=== PATIENT | female | born 1975 | race Caucasian/White ===

== ENCOUNTER 2017-03-14 05:47 | Day surgery (SDC) | payer OTHER ==
[~2017-03-14] VITALS: Ht 169.6 cm; Wt 95.1 kg
[2017-03-14] VITALS (10 sets, daily range): BP systolic 127–146; BP diastolic 78–98; PULSE 67–106; RESP 17–22; O2SAT 89–98
[~2017-03-14 05:47] MED LIST: ESTR2TAB2 PO; LISI1TAB11 PO; Lactated Ringer's 1,000 ML IV ONE
[2017-03-14] MEDS ORDERED: fentaNYL-PF 50 mCg/mL 2 mL Inj ONE (05:48)
[2017-03-14] MEDS ORDERED: HYDROmorphone 1 mg/mL Inj ONE (05:48)
[2017-03-14] MEDS ORDERED: Remifentanil 1 mg/3 mL Inj ONE (05:48)
[2017-03-14] MEDS ORDERED: Ondansetron 2 mg/mL 2 mL Inj ONE (05:48)
[2017-03-14] MEDS ORDERED: Propofol 10,000 mCg/mL 20 mL Inj ONE (05:48)
[2017-03-14] MEDS ORDERED: Neostigmine 1 mg/mL 10 mL Inj ONE (05:48)
[2017-03-14] MEDS ORDERED: EPHEDrine/NS 5 mg/mL 5 mL Syringe ONE (05:48)
[2017-03-14] MEDS ORDERED: Glycopyrrolate 0.2 MG/ML 1mL Inj ONE (05:48)
[2017-03-14] MEDS ORDERED: MetoCLOpramide 5 mg/mL 2 mL Inj ONE (05:48)
[2017-03-14] MEDS ORDERED: Dexamethasone 4 mg/mL Inj ONE (05:48)
[2017-03-14] MEDS ORDERED: Rocuronium 10 mg/mL 5 mL Inj ONE ×2 (05:48)
[2017-03-14] MEDS: Cefotetan 2,000 mg/100 mL D5W IV SCH ×4 (06:00→08:00)
[2017-03-14] MEDS ORDERED: Bupivacaine-MPF 0.5% 30 mL Inj INFILTRATE ONE (07:28)
[2017-03-14] MEDS ORDERED: 0.9% Sodium Chloride 1,000 ML IV ONE (08:00)
[2017-03-14] MEDS ORDERED: Lactated Ringer's 1,000 ML IV SCH (08:59)
[2017-03-14] MEDS ORDERED: Lactated Ringer's 500 ML IV PRN (08:59)
--- NOTE | 2017-03-14 08:59 | PCM.HPANE ---
Patient Data Surgeon Admitting Provider: Attending Provider:Lauren Heredia MD Primary Care Physician:Gabby Hawkins MD Other Provider:Latisha Nelson Anesthesia Reason for Visit Cystic Mass Of Pancreas Ht/WT & BMI Height (Feet): 5 Height (Inches): 6.75 Weight (Kilograms): 94.6 Body Mass Index 32.00 Allergies Coded Allergies: No Known Allergies (Verified Allergy, Unknown, 06/12/15) Past Anesthesia History Anesthesia History: Denies:: Abnormal Airway, Anesthesia Reactions, Difficult Intubation, Fam Anesthesia Reaction, Fam Malignant Hypertherm, Malignant Hyperthermia Diabetes History Hx Diabetes?: No MRSA MRSA: No Medications Hypertension Medication: Yes (treated with lisinopril/HCTZ) Home Meds Incl Beta Reyna: No Reported Medications Estradiol 2 Mg Tablet2 Mg PO DAILY Ref 0 03/10/17 Lisinopril / HCTZ 20-25 mg 1 Each Tablet1 Each PO DAILY Ref 0 03/10/17 Discontinued Reported Medications Lisinopril / HCTZ 20-25 mg 1 Each Tablet1 Each PO DAILY Ref 0 03/09/16 Discontinued Scripts oxyCODONE 5 Mg Tablet5 Mg PO Q4H PRN For Moderate Pain #30 TABLET Prov:Lauren Heredia MD 03/15/16 Polyethylene Glycol 3350 (Miralax)17 Gm Powd.pack17 Gm PO DAILY #30 Prov:Lauren Heredia MD 03/15/16 History History of ENT Problems?: Yes HEENT History: Positive for:: Sinus Problem (only with seasonal allergies) TMJ Denies:: Abnormal Airway Cataracts Difficult Intubation Dysphagia Glaucoma Hearing Problem Denture Type: None Retainer/Coatings Inspector Teeth Condition: Within Normal Limits Other HEENT 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 Hx of Heart Problems?: Yes Cardiovascular History: Positive for:: Hypertension Denies:: AICD Abdominal Aortic Aneurism Atrial Fibrillation Cardiac Surgery Chest Pain Congestive Heart Failure Coronary Artery Disease Edema Heart Murmur Irregular Heartbeat Pacemaker Peripheral Vascular Rheumatic Fever Thrombophlebitis Valvular Heart Disease Hx of Respiratory Problem?: No Respiratory History: Denies:: Asthma COPD Chest Surgery Cough Dyspnea Emphysema Hemoptysis Oxygen Administration Pneumonia Pulmonary Embolism Tuberculosis Use of C-PAP Machine Use of Inhalers / NEBS Hx Neurologic Problems?: No Neurological History: Denies:: Alzheimer's Disease CVA Dementia Dizziness Headaches Multiple Sclerosis Parkinson's Disease Peripheral Neuropathy Seizures TIA Hx of GI Problems?: No Gastrointestinal History: Denies:: Cirrhosis Diverticulitis Gall Bladder Disease Gastroesphageal Reflux Gastrointestinal Bleeding Heartburn Hepatitis Hiatal Hernia Liver Disease Rectal Bleeding Hx of Problems?: No Genitourinary History: Denies:: HX of Hemodialysis Kidney Stones Urinary Tract Infection HX of Peritoneal Dialysis: No Female Hx: Denies:: Currently (HX: HYSTERECTOMY) Endometriosis Pelvic Inflammatory Problems with Breasts? Skin History: Denies:: History Skin Disorders? Pressure Ulcers Hx Musculoskeletal Problems?: No Musculoskeletal History: Denies:: Back Injury Degenerative Joint Fibromyalgia Joint Replacement Musculoskeletal Trauma Myasthenia Gravis Osteoarthritis Rheumatoid Arthritis Systemic Lupus Hx of Psycho/Social Problems?: No Psycho Social History: Denies:: Anxiety Bipolar Disorder Hx Depression Suicide Attempt Hx Surgeries?: Yes (Choli, Hysterectomy, Tubal) Hx Any Other Health Problems?: Yes Other History: Positive for:: Hospitalization (Pancreatitis - Prov. Alberto November 2014) Denies:: Cancer Endocrine Disease Thyroid Disease History Blood Transfusions: Positive for:: Accept Blood Products? Denies:: Blood Transfuse Reaction Blood Transfusions Hx Diabetes: No Hx Alcohol Use: NoHx Substance Use: No Smoking Status: Former Smoker Stop/Bang S-Snoring: Do You Snore Loudly: No T-Tired: feel tired, fatigued: No O-Obsered: Observed not breath: No A- Age over 50: No N- Neck Large Circumference: No G- Gender Male: No Risk Assessment Category Category 1A: Patient has history of documented sleep apnea, and HAS NOT received any narcotic, sedative or anesthesia administration during this stay. Category 1B: Patient has history of documented sleep apnea, and HAS received any narcotic , sedative or anesthesia administration during this stay Category 2: Patient has SUSPECTED Obstructive Sleep Apnea, and HAS received any narcotic , sedative or anesthesia administration during this stay. Category 3: Patient has SUSPECTED Obstructive Sleep Apnea and HAS NOT received narcotic, sedative or anesthesia administration during this stay. Category 4: Outpatient in Procedural Areas with known sleep apnea or who screen positive for High Risk via the STOP/BANG questionnaire. Exam Exam Vital Signs Vital Signs Date Time Temp Pulse Resp B/P Pulse Ox O2 Delivery O2 Flow Rate FiO2 03/14/17 06:04 35.8 67 17 127/88 95 Room Air General Appearance: Alert, Oriented X3, Cooperative, No Acute Distress HEENT/AIRWAY: MP 2, Neck Movement (FROM), Mouth Opening (3 FBMO) Lungs: Clear to Auscultation, Normal Air Movement Heart: Exam Unremarkable, Regular Rate/Rhythm, No Murmurs/Rubs/Gallops Meds/Labs/Diagnostics Admission Meds Current Medications Lactated Ringer's (Lr) 1,000 ml @ 120 mls/hr Q8H20M ONCE IV Last administered on 03/14/17t 05:50; Start 03/14/17 at 05:00; Stop 03/14/17 at 13:19 Plan Impression Patient chart reviewed, patient interviewed and anesthestic plan with risks, benefits, and alternatives discussed, and informed consent obtained. NPO per Anesth. Guidelines: Yes ASA Physical Status: ASA2 Mod Systemic Disease Anesthetic Support Modalities: Arterial Line (anesthetic risks of arterial line including bleeding, infection, nerve damage, sensory loss to hand, loss of blood flow to the hand, air embolism discussed. AQA. Consent signed.) Anesthetic Plan: GA, Epidural (Possible postoperative epidural for pain relief discussed and consent signed.) Bene/Risks/Altern/Consents: Yes HP Complete Prior to Induction: Yes Shukri Lazo MD Mar 14, 2017 07:17
[2017-03-14] MEDS ORDERED: fentaNYL-PF 50 mCg/mL 2 mL Inj IVPUSH PRN (09:00)
[2017-03-14] MEDS ORDERED: MetoCLOpramide 5 mg/mL 2 mL Inj IVPUSH PRN ×2 (09:00→15:35)
[2017-03-14] MEDS ORDERED: Atropine 0.4 mg/mL Inj IVPUSH PRN (09:00)
[2017-03-14] MEDS ORDERED: Phenylephrine 10,000 mCg/mL Inj IVPUSH PRN (09:00)
[2017-03-14] MEDS ORDERED: EPHEDrine Sulfate 50 mg/mL Inj IVPUSH PRN (09:00)
[2017-03-14] MEDS ORDERED: Ondansetron 2 mg/mL 2 mL Inj IVPUSH PRN (09:00)
[2017-03-14] MEDS ORDERED: Labetalol 5 mg/mL 4 mL Inj IV PRN (09:00)
[2017-03-14] MEDS ORDERED: Lactated Ringer's 1,000 ML IV ONE (09:39)
--- NOTE | 2017-03-14 15:34 | PCM.SURGPO ---
Immediate Operative Note Date of Surgery: Mar 14, 2017 Pre Operative Diagnosis Cystic lesion of the pancreas Post Operative Diagnosis Same Procedure Laparoscopic Distal pancreatectomy with splenectomy Surgeon and Pork Cutlet Maker Surgeon: Lauren Heredia MD Assistants: Juan J Serra MD, Nando Napoles PAC Findings Lesion identified with US prior to transection. Frozen section negative Complications There were no periprocedural complications identified. Surgical Specimen Removed: Yes Specimen sent to Pathology: Yes Anesthetic Administered: GA Grafts, Implants: None Output, Estimated Blood Loss: 10 Blood Admin during surgery: No Attending Statement First Assistants listed were medically necessary for the successful completion of the operation Lauren Heredia MD Mar 14, 2017 15:33
[2017-03-14] MEDS ORDERED: Acetaminophen IV 1,000 MG in IV Premix 1 EACH IV PRN (15:40)
[2017-03-14] MEDS ORDERED: Dextrose 10% 250 ML IV PRN (15:45)
--- NOTE | 2017-03-14 15:49 | PCM.ANEP1 ---
Post Anesthesia PACU Phase 1 Assessment Vital Signs Vital Signs Date Time Temp Pulse Resp B/P Pulse Ox O2 Delivery O2 Flow Rate FiO2 03/14/17 15:45 36.7 91 22 127/82 98 Simple Mask 6 Anesthetic Administered: GA Level of Alertness: Awake, talking RIVERA's with Equal Strength: Yes Pain: No Nausea or Vomiting: No CV Function & Hydration Stable: Yes Airway Device: N/A Oxygen Delivery: Simple Mask Lungs: Clear to Auscultation, Normal Air Movement Dermatome Level: Full Sensation PACU Phase 2 Assessment Complications: No Follow up Care: N/A Patient Instructions Provided: N/A Shukri Lazo MD Mar 14, 2017 15:49
[2017-03-14 16:07] LABS: BASOPHILS % (AUTO) 0.1 % (0-3); EOSINOPHILS % (AUTO) 0 % (0-5); MONOCYTES % (AUTO) 5.4 % (4-12); Mean Corpuscular Hemoglobin 29.5 pg (27.0-35.0); Mean Corpuscular Volume 88.1 fL (81-100); Platelet Count 246 bil/L (150-400)
[2017-03-14] MEDS: HYDROmorphone 1 mg/mL Inj IVPUSH PRN ×5 (16:30→23:33)
[2017-03-14] MEDS: Ondansetron 2 mg/mL 2 mL Inj IVPUSH PRN ×3 (17:22→21:05)
--- NOTE | 2017-03-14 17:37 | NUR ---
Admit to floor: Pt arrived to floor at 1700. A/OX3. OOB to BSC, nausea with transfer. 4mg IV Zofran given for nausea. Pt burping, informed to continue as to clear gas accumulation. On NC 3L sats of 95-96%. NM checks normal. Mother, Crystal, in room with pt.
[2017-03-14] MEDS: Insulin Human REGular 300 Unit/3 mL Inj SUBQ SCH (21:07)
--- NOTE | 2017-03-14 23:27 | OP ---
[address] [address] OPERATIVE REPORT PATIENT: ADAMARIS YORK : 1975 MR#: [id number] ADMIT: 03/14/2017 JOB ID: [id number] DATE OF SURGERY: 03/14/2017 PREOPERATIVE DIAGNOSIS(ES): Cystic lesion on the body of the pancreas. POSTOPERATIVE DIAGNOSIS(ES): Cystic lesion on the body of the pancreas. PROCEDURE PERFORMED: 1. Laparoscopic distal pancreatectomy with splenectomy. 2. Intraoperative ultrasound and interpretation. 3. Mobilization of splenic flexure. SURGEON: Lauren Heredia MD. GANG RIPSAW OPERATOR: Juan J Serra MD and Nando Napoles PA-C. ESTIMATED BLOOD LOSS: 10 mL. COMPLICATIONS: None. CONDITION OF THE PATIENT: Stable. INDICATIONS: The patient is a 41-year-old lady who has had known lesion in the tail of the pancreas for the past few years. It was initially noted with an episode of pancreatitis and after that she has been monitored with cross-sectional imaging and endoscopic ultrasound. A cholecystectomy did not improve her symptoms of abdominal pain and she continued to have episodic left upper abdominal and back pain and on repeat imaging a cystic lesion appeared to be getting bigger. After discussing the risks, benefits, and alternatives, and getting evidence for pneumococcus, meningococcus and hemophilus influenza B, she comes here today for a distal pancreatectomy and splenectomy. PROCEDURE IN DETAIL: The patient was placed in supine position, underwent smooth induction of general anesthesia. A Carbajal catheter was placed, an arterial line was placed and the abdomen was prepped and draped in the usual sterile fashion in the lithotomy position. After this, surgical time-out was undertaken using safety checklist, and all were in agreement. I began by entering the abdomen in the supraumbilical location using a combination of open Ming technique and the Optiview trocar. Obtained pneumoperitoneum and then placed an additional three 5 mm ports, one in the epigastrium and two in the left upper quadrant. I began by mobilizing the splenic flexure of the colon, getting between the transverse mesocolon and the Gerota's fascia. After my wide mobilization of the splenic flexure, I got into the lesser sac by dividing the short gastrics along the greater curvature of the stomach. After exposing the anterior surface of the pancreas were taken down. The posterior attachments of the stomach we used laparoscopic intraoperative ultrasound to evaluate the pancreas and found obvious cystic lesion in the body of the pancreas. I then marked the place of transection of the pancreas with cautery and began our dissection at the inferior aspect of the pancreas. We then created a tunnel posterior to the anchored location with a combination of blunt and sharp dissection, lifting the pancreas and the splenic vein. After dissecting the pancreas circumferentially in this location including the width of the gland, I encircled it in a [place] drain. After making sure that we had adequate opening around the pancreas, we divided the pancreas with a 60 mm endo SIRISHA stapler reinforced with SeamGuard using gradually increasing compression to compress the gland adequately. We proceeded to use two loads to complete the division of the gland and the vasculature including the splenic vein and the artery. I then continued to mobilize the pancreas from its retroperitoneal attachments posteriorly with a combination of blunt and sharp dissection. We then joined the dissection lines from the medial and the lateral aspects and took down the attachments of the spleen to the diaphragm and the remaining attachments of the pancreas to the retroperitoneum. After the specimen was completely detached, we enlarged the supraumbilical port site to accommodate a 15 mm EndoCatch bag and brought the specimen to the fascial level. I then enlarged the fascial incision more and I then morcellated the spleen within the EndoCatch bag and extracted the specimen while preserving the pancreas intact. I then sent the specimen to Pathology requesting frozen section of the cut surface of the pancreas. The frozen section did not show any evidence of malignancy at the pancreatic transection margin, and I proceeded to close the supraumbilical port site fascia with running 0 PDS suture. We then applied Tisseel tissue adhesive to the patient's side of the pancreatic resection margins. I then placed a #19 Yamil-Rose drain through one of the 5 mm sites to lie in the lesser sac. After that, pneumoperitoneum was evacuated while watching the drain position. All ports were removed. The enlarged 12 mm port in the left upper quadrant used for stapling was closed with 0-Vicryl suture. The skin was reapproximated with 4-0 Monocryl. Steri-Strips and sterile dressing were applied. Patient was recovered from anesthesia and was taken to the recovery room in stable condition. PIPER
[2017-03-15] MEDS: Insulin Human REGular 300 Unit/3 mL Inj SUBQ SCH ×3 (02:30→14:30)
[2017-03-15] MEDS: HYDROmorphone 1 mg/mL Inj IVPUSH PRN ×4 (03:35→13:23)
[2017-03-15 05:28] LABS: BASOPHILS % (AUTO) 0 % (0-3); EOSINOPHILS % (AUTO) 0 % (0-5); MONOCYTES % (AUTO) 9.7 % (4-12); Mean Corpuscular Hemoglobin 29.6 pg (27.0-35.0); Mean Corpuscular Volume 87.2 fL (81-100); NEUTROPHILS % (AUTO) 79.3 % (40-74); Platelet Count 252 bil/L (150-400)
--- NOTE | 2017-03-15 07:43 | PCM.PNSURG ---
Subjective Date of Service: Mar 15, 2017 Visit Information: Laparoscopic distal pancreatectomy & Splenectomy 03/14/2017 Post-Op Day # 1 Subjective: Was doing well last night, woke up with some pain this morning Objective Vital Sign- Last 8 Hours Date Time Temp Pulse Resp B/P Pulse Ox O2 Delivery O2 Flow Rate FiO2 03/14/17 23:52 36.7 103 19 146/98 89 Nasal Cannula 1.00 Intake and Output- Last 8 Hour 03/15/17 Cumulative From/Thru 07:00 03/10/17 15:15 - 03/15/17 06:05 Intake Total 450 ml 3300 ml Output Total 1000 ml 1550 ml Balance -550 ml 1750 ml Intake Oral 450 ml 550 ml IV Total 2750 ml Output Urine Total 950 ml 1450 ml Drainage Total 50 ml 80 ml Estimated Blood Loss 20 ml # Bowel Movements 0 0 Abdomen: Soft, Other (dressings dry, JENNIFER serosanguinous) Result Diagram: 03/15/17 0444 03/15/17 0444 Lab & Micro Results: Drain fluid amylase pending Assessment & Plan Impression Doing well Problems: Plan Scheduled tylenol, ibuprofen, increase availability of Dilaudid PO opioids once tolerating regular diet Ambulate Continue checking blood glucose levels Plan to DC once taking good PO and pain well controlled. Lauren Heredia MD Mar 15, 2017 07:43
[2017-03-15 14:56] VITALS: BP 130/82; PULSE 87; RESP 18; O2SAT 96
[2017-03-15] MEDS ORDERED: Ibuprofen PO (15:46)
[2017-03-15] MEDS ORDERED: OXYC5TAB72 PO (15:46)
[2017-03-15] MEDS ORDERED: Acetaminophen PO (15:46)
--- NOTE | 2017-03-15 15:58 | PCM.DISURG ---
Surgical Discharge Instruction Date of Service Mar 15, 2017 Dates of Hospitalization Date of Hospital Admission Providers Admitting Physician: Primary Care Physician: Gabby Hawkins MD Attending Physician: Lauren Heredia MD Discharge Diagnosis Discharge Diagnosis Cystic Lesion of the Pancreas s/p Laparoscopic Distal Pancreatectomy & Splenectomy Post Operative diagnosis Same Diet Discharge Diet: Low fat Activity Discharge Activity-General: Be up and about Dressing and Incisional Care Dressing Care: Remove outer dressing after 24 hrs Hygiene: May shower, Other (Monitor JENNIFER output) Follow Up Plan Follow-up appointment: Days (3) Call your provider for: Fever, Chills, Shortness of breath, Increasing abdominal pain, Nausea, Vomiting, Wound redness, Increasing wound pain, Warmth to touch, Discharge @ incision, pus discharge Lauren Heredia MD Mar 15, 2017 15:58
--- NOTE | 2017-03-15 17:52 | NUR ---
Discharge Patient discharged home. IV DC'd and intact. Patient teaching included pain medications, how to care of JENNIFER drain, and low fat diet. Discharge instructions given with no questions. Dressing CDI. Patient has a follow-up appointment on Tuesday with Dr. Heredia at 1015 and lab follow up for JENNIFER drain fluid. Patient gathered all belongings. FIELD SALES REPRESENTATIVE escorted patient out via walking.
[2017-03-16] MEDS ORDERED: ONDA4TAB12 ORAL (13:26)
[2017-03-16] MEDS ORDERED: ACET325T51 PO (13:26)
[2017-03-16] MEDS ORDERED: IBUP400T22 PO (13:26)
--- NOTE | 2017-03-16 17:10 | PCM.DC.SUR ---
Discharge Summary Date of Service: 03/15/2017 Date of Hospital Admission: 03/14/2017 Date of Operation(s): 03/14/2017 Date of Discharge: Mar 15, 2017 at 17:50 Diagnosis at Time of Discharge Status post laparoscopic distal pancreatectomy & splenectomy Past Medical and Surgical History: 1. Hypertension 2. Endometriosis 3. Seasonal allergies 4. Obesity 5. Diagnostic laparoscopy 6. Tubal ligation 7. Hysterectomy 8. Laparoscopic cholecystectomy with cholangiogram 03/15/2016 Problems: Operation Laparoscopic distal pancreatectomy & splenectomy Brief History and Physical: History of Present Illness: Solange Singer is a 41-year-old lady presented to the emergency room on 12/03/2014 night with severe upper abdominal pain radiating to the back. She underwent a CT angiogram, ultrasound, EKG and blood work. She was found to have pancreatitis and a lesion in the pancreas based on her lipase of [address] Rest of the workup was negative. This episode was not preceded by any alcohol intake and she was not found to have any gallstones. She has been followed by Dr. Silverman since that episode who has been following the pancreatic lesion with a combination of cross-sectional imaging and endoscopic ultrasound. The patient continued to have totally unpredictable, episodic upper abdominal/ substernal pain radiating to the left side and back. Dr. Silverman tried to sample cystic lesion in the tail of the pancreas on 10/09/2015 and was not successful, prompting him to send her for a consultation at [facility] in [place]. The textile slitting machine operator in [facility] Dr. Venice Bean suggested that she probably should talk to a surgeon to first try a cholecystectomy which prompted her to come in and see me on 01/22/2016. I performed a laparoscopic cholecystectomy on 03/15/2016. She continues to have episodes of pain in the left upper abdomen and back prompting her to see Dr. Hawkins who obtained an pancreatic protocol MRI and sent her back for surgical consultation. Consequently on evaluation surgical resection of the distal pancreas and spleen were recommended. Hospital Course: The patient was taken to the operating room with a history presentation and workup consistent with cystic lesion of the body of the pancreas and underwent distal pancreatectomy and splenectomy without complication (see operative report for details of the procedure). Her postsurgical recovery was not eventful. There is no documentation of bowel movement. The patient was stable for discharge per Dr. Heredia on postop day #1 at the time of discharge the patient was voiding without complication. Tolerating by mouth opioids, regular diet, & pain was under control. The patient was ambulating without assistance, her surgical wounds were clean, dry, & intact without signs of infection, inflammation, and/or hematoma. There was a surgical drain in place & the patient had discharge instructions for care & follow-up. Disposition: Home in stable condition. Follow-up Plan: Follow up in outpatient clinic with Dr. Crabtree in 72 hours Acetaminophen (Acetaminophen) 325 Mg Tablet 325 MG PO Q4H PRN PRN For Fever ( Reported) Estradiol (Estradiol) 2 Mg Tablet 2 MG PO DAILY (Reported) Ibuprofen (Ibuprofen) 400 Mg Tablet 400 MG PO QID PRN PRN For Pain (Reported) Lisinopril / HCTZ 20-25 mg (Lisinopril / HCTZ 20-25 mg) 1 Each Tablet 1 EACH PO DAILY (Reported) Ondansetron ODT (Ondansetron ODT) 4 Mg Tab.rapdis 0.4 MG ORAL q6hrs PRN PRN For Nausea (Reported) oxyCODONE (oxyCODONE) 5 Mg Tablet 5 MG PO Q4H PRN PRN For Pain Discharge Medications: Oxycodone 5 mg by mouth every 4 hours when necessary pain Attending Statement: All documentation reviewed & orders authorized by Giovanna Aguilar M.D. copies to: Gabby Hawkins MD, Scott PA-C Mar 16, 2017 17:10
== END 2017-03-15 17:50 | disposition home or self-care (01) ==
LOC: SAS 05:47 → OSC 17:03 → SAS 03-15 17:50
PROVIDERS: ATTEND Student in an Organized Health Care Education/Training Program
DX: C7A.8 Other malignant neuroendocrine tumors (principal); K85.90 Acute pancreatitis without necrosis or infection, unspecified; R10.32 Left lower quadrant pain; I10 Essential (primary) hypertension; J30.2 Other seasonal allergic rhinitis; N80.9 Endometriosis, unspecified; E66.9 Obesity, unspecified; Z68.33 Body mass index [BMI] 33.0-33.9, adult; Z87.891 Personal history of nicotine dependence; Z90.710 Acquired absence of both cervix and uterus; G89.18 Other acute postprocedural pain
CPT/HCPCS: 36415; 38120; 48999; 80053; 82150; 83036; 83690; 85025; 86850; 96374; 96376; J1100; J1170; J1815; J2250; J2405; J2710; J2765; J3010; J7030; J7120; S0074

== ENCOUNTER 2017-03-16 05:45 | Inpatient (IN) | payer OTHER ==
[~2017-03-16] VITALS: Ht 170.2 cm; Wt 95.3 kg
[~2017-03-16 05:45] MED LIST changes: +Acetaminophen PO; +Ibuprofen PO; -Lactated Ringer's 1,000 ML IV ONE; +OXYC5TAB72 PO
[2017-03-16 05:50] VITALS: BP 116/79; PULSE 96; RESP 18; O2SAT 94
[2017-03-16] MEDS ORDERED: 0.9% Sodium Chloride 1,000 ML IV ONE (06:16)
--- NOTE | 2017-03-16 06:16 | ED.REPORT ---
HPI-General Illness Date of Service Mar 16, 2017 ED Provider: Luke Lambert MD The patient is a 41 year old female with history of hypertension, pancreatitis, previous cholecystectomy (2016), endometriosis s/p hysterectomy, tubal ligation , and recent distal pancreatectomy and splenectomy, who presents to the emergency department complaining of increased abdominal pain and nausea. The patient had the distal pancreatectomy and splenectomy on 03/[address] Heredia. She was discharged from the hospital last night and was directed to come to the emergency department if she seemed worse. She has been taking oxycodone 5 mg, Tylenol, and Motrin. She does not feel like these medications are helping. She has felt hot but has not measured her temperature. She has a drain in place with 30 mL output since discharge and it does not appear frankly bloody. She denies dysuria. Nursing Notes Stated Complaint: SURGERY 03/15/17,HAVING PAIN,NAUSEA Chief Complaint: Female Abdominal Pain Nursing Notes Reviewed: Yes Allergies: Coded Allergies: No Known Allergies (Verified Allergy, Unknown, 06/12/15) Scheduled ([Acetaminophen]) 325 MG TABLET 650 MG PO Q6H ([Ibuprofen]) 200 MG TABLET 400 MG PO [facility] Estradiol (Estradiol) 2 Mg Tablet 2 MG PO DAILY Lisinopril / HCTZ 20-25 mg (Lisinopril / HCTZ 20-25 mg) 1 Each Tablet 1 EACH PO DAILY Scheduled PRN oxyCODONE (oxyCODONE) 5 Mg Tablet 5 MG PO Q4H PRN PRN For Pain General Time Seen by MD: 06:12 Chief Complaint Abdominal pain, Other (nausea) Hx Obtained From: Patient Arrived By: Walk-in Sudden in Onset?: Yes Onset Occurred: 1 day ago Symptom Duration: Since onset Location: : Abdomen Quality: Painful Severity: Current: Moderate Severity: Maximum: Severe Associated with: Reports: Nausea Pertinent Negative: Pt denies other symptoms Recent Healthcare: Recent doctor visit, Recent hospitalization, Previous surgery Similar Sx Previous: No Past Medical History Past Medical History Hypertension Pancreatitis Past Surgical History Distal pancreatectomy and splenectomy Reports: Cholecystectomy, Hysterectomy Reports: Tubal ligation Family History Noncontributory Smoking History Former Smoker Social History Other Social History: Good social support, Local resident Ambulatory Status Independent Review of Systems Full Review of Systems Constitutional: Reports: Fever (subjective) GI: Reports: Abdominal pain, Nausea Female: Denies: Dysuria Complete sys rev & neg: except as marked. Physical Exam Vital Signs Vital Signs Date Time Temp Pulse Resp B/P Pulse Ox O2 Delivery O2 Flow Rate FiO2 03/16/17 05:50 37.2 96 18 116/79 94 Room Air Initial VS: Reviewed Head / Eyes: Atraumatic, Normocephalic, PERRL Neck: Supple, Non-tender, Full range of motion Respiratory: Breath sounds normal, Clear to auscultation, No respiratory distress Cardiovascular: Regular rate & rhythm, Heart sounds normal, Intact distal pulses Lymphatic: No lymphadenopathy Extremities: Vascular intact, Neuro intact, No swelling, No tenderness Skin: Warm, Dry, No cyanosis Neurologic: Alert, Oriented, Nonfocal Psychiatric: Mood/affect normal, Behavior normal, Normal thought content General/Constitutional: Awake, Alert, No acute distress, Cooperative She seems slightly uncomfortable. ENT: Airway patent Mouth: Positive: Mucous membranes dry (slightly) Abdomen: No guarding, No rebound Bowel Sounds / Distention: Positive: Bowel sounds hypoactive There is a drain present in her left abdominal region with some serosanguineous fluid present. Well healing laparoscopic scars about her abdomen. She has some mild tenderness about the upper abdomen. No rigidity. Lower Extremity / Pelvis / MS: Neurologic intact, Vascular intact No calf swelling or tenderness. Interpretation & Diagnostics Lab Results Interpretation Result Diagram: 03/16/17 0610 03/16/17 0610 Test 03/16/17 06:10 03/16/17 08:15 White Blood Count 21.1th/mm3 (3.8-10.1) Red Blood Count 4.00mil/mm3 (3.90-5.20) Hemoglobin 11.8g/dL (12.0-15.6) Hematocrit 35.5% (35.0-46.0) Mean Corpuscular Volume 88.8fL (81-100) Mean Corpuscular Hemoglobin 29.5pg (27.0-35.0) Mean Corpuscular Hemoglobin Concent 33.2% (32.0-37.0) Red Cell Distribution Width 12.6% (12.3-15.4) Platelet Count 243bil/L (150-400) Neutrophils (%) (Auto) 84.0% (40-74) Lymphocytes (%) (Auto) 6.2% (14-46) Monocytes (%) (Auto) 9.5% (4-12) Eosinophils (%) (Auto) 0% (0-5) Basophils (%) (Auto) 0% (0-3) Sodium Level 135mEq/L (134-144) Potassium Level 4.0mEq/L (3.5-5.2) Chloride Level 100mEq/L (97-108) Carbon Dioxide Level 21mmol/L (18-29) Blood Urea Nitrogen 6mg/dL (6-24) Creatinine 0.39mg/dL (0.57-1.00) Estimat Glomerular Filtration Rate 261mL/min (>59) Glucose Level 141mg/dL (60-99) Calcium Level 8.7mg/dL (8.5-10.1) Magnesium Level 1.9mg/dL (1.6-2.6) Total Bilirubin 0.4mg/dL (0.0-1.2) Aspartate Amino Transf (AST/SGOT) 37U/L (0-50) Alanine Aminotransferase (ALT/SGPT) 92U/L (0-32) Alkaline Phosphatase 58U/L (25-150) Total Protein 6.8g/dL (6.4-8.4) Albumin 3.6g/dL (3.4-5.0) Lipase 117U/L (13-60) Human Chorionic Gonadotropin, Qual 0.576 (Negative) Urine Color Yellow (YELLOW) Urine Appearance Clear (CLEAR,HAZY) Urine pH 8.5 (5.0-8.0) Urine Specific Scenic 1.015 (1.003-1.035) Urine Protein 100mg/dL (NEG,TRACE) Urine Glucose (UA) Negativemg/dL (NEGATIVE) Urine Ketones Tracemg/dL (NEGATIVE) Urine Occult Blood Trace (NEGATIVE) Urine Nitrite Negative (NEGATIVE) Urine Bilirubin Negative (NEGATIVE) Urine Urobilinogen Normalmg/dL (NORMAL) Urine Leukocyte Esterase Negative (NEGATIVE) Urine RBC 0-2/hpf (0-2) Urine WBC 0-5/hpf (0-5) Urine Epithelial Cells Occasional/hpf (NONE-MOD) Urine Crystals None seen (NONE SEEN) Urine Bacteria Few/hpf (NONE-FEW) Urine Hyaline Casts None/lpf (NONE) Urine Granular Casts None seen (NONE SEEN) Urine Waxy Casts None seen (NONE SEEN) Urine Red Blood Cell Casts None seen (NONE SEEN) Urine White Blood Cell Casts None seen (NONE SEEN) Urine Mucus None seen (None Seen) Urine Trichomonas None seen (NONE SEEN) Urine Yeast None (NONE SEEN) Urinalysis Comment None Urine Culture Reflexed Not indicated X-Ray Chest Interpretation Chest Xray Interpretation: IMPRESSION: Expiratory chest demonstrating no definite acute cardiopulmonary process. Dictated by: Isaiah Schilling RRA Interpreted: Nando Conner MD on 03/16/2017 at 9:56 Interpretation / Wet Read by: Interpret - Radiologist CT Abd / Pelvis Interpretation IMPRESSION: Reportedly a Whipple procedure has been performed for resection of a hypo-dense structure within the pancreatic tail on one day this week, and there is also postoperative change of cholecystectomy and splenectomy. A small amount of postoperative fluid and several small gas bubbles are seen at the Whipple procedure operative bed. No abscess is found. A small amount of free fluid is seen deep within the pelvis, where also no abscess is found. A bibasilar atelectasis pattern is present, with slight effusion at the left lower lobe region. Dictated by: Nando Conner M.D. on 03/16/2017 at 8:55 Study type: Abdominal CT IV contrast Interpretation / Wet Read by: Interpret - Radiologist Re-Eval/Medical Decision Med Decision/Clinical Course The patient is a 41 year old female with history of hypertension, pancreatitis, previous cholecystectomy (2015), endometriosis s/p hysterectomy, tubal ligation , and recent distal pancreatectomy and splenectomy, who presents to the emergency department complaining of increased abdominal pain and nausea. The patient had the distal pancreatectomy and splenectomy on 03/[address] Heredia. She was discharged from the hospital last night and was directed to come to the emergency department if she seemed worse. She has been taking oxycodone 5 mg, Tylenol, and Motrin. She does not feel like these medications are helping. Here in the emergency department the patient is afebrile, hemodynamically stable and in no apparent distress. Her abdomen is mildly tender without any guarding, rigidity or rebound. Treated with Zofran, Dilaudid, and IVF, thereafter patient reported significant improvement in her symptoms. ABD CT obtained as below: Reportedly a Whipple procedure has been performed for resection of a hypo-dense structure within the pancreatic tail on one day this week, and there is also postoperative change of cholecystectomy and splenectomy. A small amount of postoperative fluid and several small gas bubbles are seen at the Whipple procedure operative bed. No abscess is found. A small amount of free fluid is seen deep within the pelvis, where also no abscess is found. A bibasilar atelectasis pattern is present, with slight effusion at the left lower lobe region. CXR demonstrated no acute cardiopulmonary process Her studies notable as below: leukocytosis of 21.1, The patient is noticed to have a baseline elevated WBC, stable hct 35.5, stable kidney function, no significant electrolyte abnormality , mildly elevated ALT but down from baseline, lipase 117 done from 171, UA no signs of infection. I attempted to consult the patient's surgeon Dr. Heredia was not able to speak with him directly. I spoke with our on-call surgeon who discussed the case with Dr. Heredia. He requested the patient be admitted to his service for ongoing pain management and observation. Patient was admitted in stable condition. Serial abdominal examinations remained benign and she remained stable throughout her ED course. I suspect her pain may be related to inadequate pain medication dosing as she is taking a relatively small dose of oxycodone. I considered other causes including bleeding, abscess, bowel perforation and I see no evidence thereof at this time. I see no evidence at this moment of acute postoperative infection though she does have a significantly elevated white blood cell count. Her chest x-ray shows no pneumonia and her urinalysis shows no UTI. Source of Hx: Old records Time of Eval: 10:17 Re-Evaluation/Progress Note: Discussed plan for admission. All questions were addressed. Consultation #1: Call Returned at: 09:53 Note: Spoke with the OR nurse about the patient's case. Dr. Meyers will call back. Consultation #2: Call Returned at: 10:00 Note: After discussed between Dr. Meyers and Dr. Heredia the patient will be admitted to Dr. Heredia's service. Dr. Heredia will see the patient this afternoon. Counseled Regarding: Diagnosis, Lab results, Need for admission Discharge & Departure Primary Impression: Abdominal pain Abdominal location: generalized Qualified Code: R10.84 - Generalized abdominal pain Additional Impressions: Post-operative pain History of partial pancreatectomy Leukocytosis Leukocytosis type: unspecified Qualified Code: D72.829 - Elevated white blood cell count, unspecified History of splenectomy Disposition: ADMITTED TO HOSPITAL Discharge Condition All VS Reviewed: Yes Condition: Stable Referrals: Gabby Hawkins MD (PCP) Scribe Attestation Portions of this note were transcribed by Aliyah Serra. I, Dr. Lambert personally performed the history, physical exam and medical decision-making; I reviewed and confirmed the accuracy of the information in the transcribed note. Signed by: Hua Reed, 03/16/2017 at 1100. copies to: Gabby Hawkins MD, Beck O MD Mar 16, 2017 06:16 Aliyah Serra Mar 16, 2017 06:19
[2017-03-16] MEDS ORDERED: Ondansetron 2 mg/mL 2 mL Inj IVPUSH ONE (06:20)
[2017-03-16] MEDS: HYDROmorphone 0.5 mg/0.5 mL iSecure Syringe IVPUSH PRN ×5 (06:27→13:46)
[2017-03-16 06:29] LABS: BASOPHILS % (AUTO) 0 % (0-3); EOSINOPHILS % (AUTO) 0 % (0-5); MONOCYTES % (AUTO) 9.5 % (4-12); Mean Corpuscular Hemoglobin 29.5 pg (27.0-35.0); Mean Corpuscular Volume 88.8 fL (81-100); Platelet Count 243 bil/L (150-400)
[2017-03-16 06:55] LABS: Magnesium 1.9 mg/dL (1.6-2.6)
[2017-03-16 08:47] LABS: APPEARANCE,URINE CLEAR (CLEAR,HAZY); COLOR,URINE YELLOW (YELLOW); OCCULT BLOOD,URINE TRACE (NEGATIVE); PH,URINE 8.5 (5.0-8.0); UROBILINOGEN,URINE NORMAL (NORMAL)
--- NOTE | 2017-03-16 09:05 | DRSVH ---
PROCEDURE: CT ABDOMEN AND PELVIS WITH CONTRAST ([id number]) INDICATIONS: abd pain, recent surgery (Whipple procedure performed earlier this week, reportedly Tue) TECHNIQUE: After the administration of intravenous contrast, 5 mm thick sections acquired from the diaphragm to the symphysis. 5 mm coronal and sagittal reformats were acquired. For radiation dose reduction, the following was used: automated exposure control, adjustment of mA and/or kV according to patient siz e. COMPARISON: [facility], CT, CT ABD PANCREATIC PROTOCOL, 09/08/2015, 8:19. [facility], CR, XR CHOLANGIOGRAM OPERATIVE, 03/15/2016, 8:30. FINDINGS: Image quality: Excellent. ABDOMEN: Lung bases: Lung bases are abnormal with bilateral atelectasis and likely a slight pleural effusion on the left. Heart size is normal. Solid organs: Liver is normal in size and enhancement. 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 Gallbladder is ab sent. Biliary system is non dilated. Pancreas enhances normally at the pancreatic head and neck, an d at the pancreatic body there has been a transverse excision from the mid body peripherally, with th e pancreatic tail absent no. In this area of operative intervention with a surgical staple line pres ent there is a small ovoid fluid collection, measuring approximately 3.9 cm oblique AP and 2.7 cm tra nsverse. No rim-enhancing margins are associated. There is a small amount of postoperative gas bubb les present immediately adjacent to this fluid (best seen centered on series 2 image 19). A surgical drain extends from the left lower abdomen lateral body wall cephalad over the area of splenectomy an teriorly. Mild edema is seen within the left upper quadrant fat. No adrenal nodules. Kidneys demonstrate normal size and enhancement, without hydronephrosis. Peritoneum and bowel: Bowel loops demonstrate normal wall thickness and caliber. No free fluid or a ir. Nodes and vessels: No retroperitoneal or mesenteric adenopathy by size criteria. Aorta and inferior vena cava are normal in size. Miscellaneous: No ventral hernias. PELVIS: Genitourinary: Bladder wall thickness is normal. Miscellaneous: No inguinal hernias or adenopathy. There is a small amount of free fluid deep within the pelvis. Bones: No suspicious bony lesions. No vertebral body compression fractures. IMPRESSION: Reportedly a Whipple procedure has been performed for resection of a hypo-dense structure within the pancreatic tail on one day this week, and there is also postoperative change of cholecyst ectomy and splenectomy. A small amount of postoperative fluid and several small gas bubbles are seen at the Whipple procedure operative bed. No abscess is found. A small amount of free fluid is seen deep within the pelvis, where also no abscess is found. A bibasilar atelectasis pattern is present, with slight effusion at the left lower lobe region. Dictated by: Nando Conner M.D. on 03/16/2017 at 8:55 Approved by: Nando Conner M.D. on 03/16/2017 at 9:03
--- NOTE | 2017-03-16 09:58 | DRSVH ---
PROCEDURE: X-RAY CHEST, TWO VIEWS ([id number]) INDICATIONS: POSSIBLE pna, chills, recent surg TECHNIQUE: 2 views of the chest were acquired. COMPARISON: None. FINDINGS: Surgical changes and devices: None. Lungs and pleura: No pleural effusions or pneumothorax. Lungs are clear. Lung lungs are low. Mediastinum: Mediastinal contours are normal. Heart size is normal. Bones and chest wall: No suspicious bony abnormalities. Soft tissues appear unremarkable. IMPRESSION: Expiratory chest demonstrating no definite acute cardiopulmonary process. Dictated by: Isaiah Schilling [facility] Interpreted: Nando Conner MD on 03/16/2017 at 9:56 Transcribed by: FRAN on 03/16/2017 at 9:57 Approved by: Nando Conner M.D. on 03/16/2017 at 16:27
[2017-03-16] MEDS ORDERED: Lactated Ringer's 1,000 ML IV SCH (10:06)
[2017-03-16] MEDS ORDERED: Alum-Mag Hydrox-Simeth 30 mL Suspension PO PRN (10:10)
[2017-03-16] MEDS ORDERED: Ondansetron 2 mg/mL 2 mL Inj IVPUSH PRN ×2 (10:10→16:05)
[2017-03-16 11:40] VITALS: BP 126/81; RESP 24; O2SAT 92
--- NOTE | 2017-03-16 11:40 | NUR ---
Admit to room 251-1 Pt arrived to room on a stretcher. Able to stand and transfer to bed with CGA JENNIFER drain left mid abd present. /family at bedside. Oriented to room and call light.
[2017-03-16] MEDS ORDERED: ONDA4TAB12 ORAL (13:26)
[2017-03-16] MEDS ORDERED: IBUP400T22 PO (13:26)
[2017-03-16] MEDS ORDERED: ACET325T51 PO (13:26)
[2017-03-16] MEDS ORDERED: Polyethylene Glycol (PEG) 17 Gm Powder PO PRN (16:05)
[2017-03-16] MEDS ORDERED: MetoCLOpramide 5 mg/mL 2 mL Inj IVPUSH PRN (16:05)
[2017-03-16 17:00] VITALS: BP 110/70; PULSE 79; RESP 18; O2SAT 97
--- NOTE | 2017-03-16 17:02 | HP ---
[address] [address] HISTORY AND PHYSICAL PATIENT: ADAMARIS DIXON : 1975 MR#: [id number] ADMIT: 03/16/2017 JOB ID: [id number] CHIEF COMPLAINT: Abdominal pain after a distal pancreatectomy. HISTORY OF PRESENT ILLNESS: This is a 41-year-old woman who underwent distal pancreatectomy laparoscopically performed by my partner, Dr. Lauren Heredia, two days ago for the indication of a cystic lesion on the body of the pancreas. She recovered well and was discharged yesterday. However, she began to have severe upper abdominal pain radiating to the back and came to the emergency department earlier today. Her pain was not well controlled on oral analgesia. A CT scan was performed which revealed essentially normal postoperative findings. She was admitted for ongoing pain control given her symptoms. She denies nausea or vomiting. She has not yet had a bowel movement since surgery. She is not passing gas since surgery. PAST MEDICAL AND SURGICAL HISTORY: Reviewed. She is not a diabetic and recently had distal pancreatectomy. MEDICATIONS: Reviewed. ALLERGIES: Reviewed. There are no known drug allergies. REVIEW OF SYSTEMS: An 11-point review of systems is positive for abdominal pain, inability to pass flatus, and is otherwise negative. FAMILY HISTORY: Reviewed and noncontributory. SOCIAL HISTORY: She is a former smoker. She drives a bus for a living. OBJECTIVE: Temperature 36.7, heart rate 96, blood pressure 126/81, saturation 92% on room air, respiratory rate of 24. Head: Normocephalic. Neck: Supple. Cardiac: Regular rate and rhythm. No murmurs, rubs, or gallops. Respiratory: Clear to auscultation bilaterally. Abdomen: Soft. Moderate appropriate tenderness given postoperative findings. Incisions are clean, dry, and intact. Band-Aids are removed. The left-sided abdominal drain has serosanguineous fluid in it. Extremities: No edema. Psychiatric: Normal cognition and judgment. LABORATORY: White blood cell count of 21.1, hematocrit 35, platelets 243. Comprehensive metabolic panel is within normal limits, with the exception of lipase of 117, which is decreased since yesterday when it was 226. Most recent blood glucose was 141. IMAGING: CT scan images of the abdomen and pelvis are personally reviewed and reveal normal postoperative changes. The staple line on her pancreas is seen, a very small amount of fluid in the pancreatic bed is seen, the spleen is absent, and the drain is in place although it is somewhat anterior and lateral to the surgical site. ASSESSMENT: A 41-year-old woman with postoperative abdominal pain after a laparoscopic distal pancreatectomy two days ago. PLAN: She will remain in the hospital for observation and pain control. Labs will be trended. The white blood cell count is consistent with a patient status post splenectomy. Lipase will be trended. Blood glucose will be rechecked given recent history of pancreatectomy. She will be reassessed by my partner, Dr. Heredia, who performed her operation, later in the day.
[2017-03-16] MEDS: Heparin 5,000 Unit/mL Inj SUBQ SCH ×2 (17:06→22:58)
--- NOTE | 2017-03-16 19:13 | NUR ---
Pain pt pain more controlled since admit. Able to amb halls indep requesting to be woken up for pain rx. no c/o nausea.
[2017-03-16] MEDS: HYDROmorphone 1 mg/mL Inj IVPUSH PRN (19:52)
[2017-03-16 20:03] VITALS: BP 132/87; PULSE 82; RESP 20; O2SAT 96
--- NOTE | 2017-03-16 20:59 | NUR ---
INSOMNIA Pt's family mentioned pt having trouble sleeping and wanting something to help with this. Asked pt, pt stated yes she has been having trouble sleeping. Asked if pt takes melatonin, pt stated this helps her with insomnia. Paged Dr. Heredia, no response. Addendum: 03/16/17 at 2105 by NEHAL CAR RN Planned to page Dr. Heredia again, but spoke with patient about her sleeping. She stated the previous IV dilaudid helped her sleep well for an hour, and she may not need melatonin. Will continue to reassess.
[2017-03-16 23:08] VITALS: BP 116/64; PULSE 74; RESP 18; O2SAT 94
[2017-03-17 05:59] VITALS: BP 117/74; PULSE 75; RESP 20; O2SAT 95
[2017-03-17 08:17] LABS: BASOPHILS % (AUTO) 0.1 % (0-3); EOSINOPHILS % (AUTO) 0.3 % (0-5); MONOCYTES % (AUTO) 9.9 % (4-12); Mean Corpuscular Hemoglobin 29.5 pg (27.0-35.0); Mean Corpuscular Volume 89.6 fL (81-100); NEUTROPHILS % (AUTO) 77.3 % (40-74); Platelet Count 251 bil/L (150-400)
[2017-03-17] MEDS: Heparin 5,000 Unit/mL Inj SUBQ SCH ×2 (08:43→15:40)
--- NOTE | 2017-03-17 09:02 | NUR ---
Social Work- Brief Note Data: EMR reviewed. Pt is a 41 year old admitted 03/16/17 under observation status for abdominal pain per H&P. Pt's PCP is Gabby Hawkins MD. Pt's insurance is [employer]. SW met with pt at bedside regarding discharge plan, SW role explained. Pt alert and oriented x3. Pt resides in [place] in a home with her grandmother, her daughter, and her ex-. Pt is independent at baseline. Pt did not express any concerns related to discharge at this time. Pt was provided DPOA paperwork at bedside. Pt to discharge home with mother to transport via POV, no discharge needs anticipated. SW will continue to follow if needs arise. Assessment: Pt who is independent at baseline. Plan: Pt to discharge home with mother to transport via POV, no discharge needs anticipated. SW will continue to follow if needs arise. NANCI Watson
[2017-03-17 10:15] VITALS: BP 121/83; PULSE 75; RESP 14; O2SAT 96
[2017-03-17] MEDS: Alum-Mag Hydrox-Simeth 30 mL Suspension PO PRN ×2 (12:11→19:30)
[2017-03-17 13:41] VITALS: BP 108/72; PULSE 67; RESP 18; O2SAT 94
--- NOTE | 2017-03-17 15:18 | PCM.PNSURG ---
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, splenectomy 03/14/2017 Post-Op Day # 3 Date of Admission: Mar 16, 2017 at 10:44 Hospital Day # 2 Subjective: Feels much better, tolerating liquids Objective Vital Sign- Last 8 Hours Date Time Temp Pulse Resp B/P Pulse Ox O2 Delivery O2 Flow Rate FiO2 03/17/17 13:41 36.8 67 18 108/72 94 Room Air 03/17/17 10:15 37.3 75 14 121/83 96 Room Air Intake and Output- Last 8 Hour 03/17/17 Cumulative From/Thru 07:00 03/16/17 05:50 - 03/17/17 06:01 Intake Total 1003 ml 3366 ml Output Total 66 ml 466 ml Balance 937 ml 2900 ml Intake Oral 750 ml 1350 ml IV Total 253 ml 2016 ml Output Urine Total 300 ml Drainage Total 66 ml 166 ml # Voids 3 5 # Bowel Movements 0 Abdomen: Soft, Other (Incisions c/D/I, JENNIFER Serous) Result Diagram: 03/17/17 0809 03/17/17 0809 Assessment & Plan Impression Slowly improving Problems: Plan Low fat diet Ambulate Continue current pain regimen Continue to monitor status Lauren Heredia MD Mar 17, 2017 15:18
[2017-03-17 17:45] VITALS: BP 125/89; PULSE 82; RESP 18; O2SAT 96
[2017-03-17] MEDS: HYDROmorphone 1 mg/mL Inj IVPUSH PRN (17:45)
--- NOTE | 2017-03-17 18:16 | NUR ---
Pain management Pt. was feeling great this morning with pain managed with PO oxycodone Q4 and scheduled morning tylenol and motrin. This afternoon around 1500 pain started to increase and was unrelieved with 1430 dose of tylenol and motrin and 1530 dose of oxycodone. Breakthrough dose of 0.5 mg dilaudid administered which was effective. MD present this afternoon and is aware of her pain management today.
[2017-03-17 20:36] VITALS: BP 105/68; PULSE 73; RESP 20; O2SAT 93
[2017-03-18] MEDS: Heparin 5,000 Unit/mL Inj SUBQ SCH ×3 (00:26→16:20)
--- NOTE | 2017-03-18 03:04 | NUR ---
PAIN Pt continues to receive schedule tylenol and motrin. Pt requesting to receive Roxicodone q4h scheduled as well to keep on top of pain. This system seems to be effective as patient has thus far had no breakthrough pain needing IV dilaudid.
--- NOTE | 2017-03-18 03:05 | NUR ---
DIET Pt now on heart healthy diet, tolerating fairly well. With dinner, pt c/o heartburn immediately after ingestion--maalox given with relief. Pt has fair appetite, eating most of her trays and snacking when awake at night. No nausea noted, no increase in pain from eating.
[2017-03-18 04:46] VITALS: BP 126/78; PULSE 76; RESP 20; O2SAT 95
[2017-03-18 07:34] VITALS: BP 124/68; PULSE 70; RESP 14; O2SAT 96
[2017-03-18 08:18] LABS: BASOPHILS % (AUTO) 0.1 % (0-3); MONOCYTES % (AUTO) 12.3 % (4-12); Mean Corpuscular Hemoglobin 29.1 pg (27.0-35.0); Mean Corpuscular Volume 89.1 fL (81-100); NEUTROPHILS % (AUTO) 74.9 % (40-74); Platelet Count 325 bil/L (150-400)
[2017-03-18] MEDS: Polyethylene Glycol (PEG) 17 Gm Powder PO SCH (08:19)
[2017-03-18 11:21] VITALS: BP 124/86; PULSE 69; RESP 14; O2SAT 97
[2017-03-18] MEDS: Alum-Mag Hydrox-Simeth 30 mL Suspension PO PRN ×2 (12:47→18:51)
--- NOTE | 2017-03-18 12:52 | NUR ---
Indigestion/pain Patient is alert and oriented X3. able to make needs known. Independent walking in the [address] and steady on feet. Stable vital signs with stable oxygenation. Scheduled Tylenol, Motrin, and PRN Oxycodone given for abdominal pain and discomfort this morning with effective results. Currently patient denies abdominal pain but mild discomfort reported by patient when walking in the [address]. Maalox PRN given for heart burn prior to lunch per patient request. Tolerating PO fluids and meals. Stable blood sugars. Dr. Heredia in to see patient this morning. Call light with in reach for safety. Continue to monitor for abdominal pain, vital signs, heart burn, and safety. Stable mood.
--- NOTE | 2017-03-18 13:22 | NUR ---
Pain Patient requesting pain medication for abdominal pain 12/27 and states," my pain is coming back." PRN Oxycodone given as ordered. Lunch at bed side.
[2017-03-18 15:45] VITALS: BP 121/53; PULSE 75; RESP 14; O2SAT 97
--- NOTE | 2017-03-18 15:53 | NUR ---
Low grade Temp Temp 99.8. Scheduled Tylenol given 80 minutes ago. carlos paged doctor Giovanna. Dr. Heredia called back and will put orders for suppository for constipation. patient agrees.
--- NOTE | 2017-03-18 17:17 | NUR ---
Constipation/low grade temp PRN Suppository given with effective results, per patient large bowel movement after suppository. Follow up Temp 99.1. Temperature improved from 99.7-99.1 with Tylenol scheduled. Continue to monitor vital signs.
--- NOTE | 2017-03-18 18:44 | NUR ---
JENNIFER drain JENNIFER out put 50cc.
[2017-03-18 20:06] VITALS: BP 144/90; PULSE 81; RESP 18; O2SAT 96
--- NOTE | 2017-03-18 23:13 | PCM.PNSURG ---
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 No bowel movement Objective Vital Sign- Last 8 Hours Date Time Temp Pulse Resp B/P Pulse Ox O2 Delivery O2 Flow Rate FiO2 03/18/17 20:06 37.0 81 18 144/90 96 Room Air 03/18/17 17:17 37.3 03/18/17 15:45 37.7 75 14 121/53 97 Room Air Intake and Output- Last 8 Hour 03/18/17 Cumulative From/Thru 07:00 03/16/17 05:50 - 03/18/17 04:46 Intake Total 1108 ml 5529 ml Output Total 30 ml 551 ml Balance 1078 ml 4978 ml Intake Oral 1078 ml 3453 ml IV Total 30 ml 2046 ml Tube Irrigant 30 ml Output Urine Total 300 ml Drainage Total 30 ml 251 ml # Voids 5 14 # Bowel Movements 0 Result Diagram: 03/18/17 0741 03/18/17 0741 Assessment & Plan Impression Slowly improving Problems: Plan Low fat diet Ambulate Miralax, Dulcolax Continue to follow labs Will plan drain removal & DC if continues to improve Otherwise, will repeat CT Lauren Heredia MD Mar 18, 2017 23:13
[2017-03-19] MEDS: Heparin 5,000 Unit/mL Inj SUBQ SCH ×3 (00:54→17:42)
[2017-03-19 00:57] VITALS: BP 161/98; PULSE 74; RESP 16; O2SAT 96
[2017-03-19 05:46] VITALS: BP 128/74; PULSE 74; RESP 16; O2SAT 95
--- NOTE | 2017-03-19 06:01 | NUR ---
Pain Pt on scheduled tylenol and motrin. Pt stretched Roxicodone to 7 hours with increased pain. Pt informed about using oral medications PRN to make sure pain is at a tolerable level. No IV pain medication was used.
[2017-03-19 07:21] LABS: BASOPHILS % (AUTO) 0.3 % (0-3); EOSINOPHILS % (AUTO) 2.3 % (0-5); MONOCYTES % (AUTO) 14.6 % (4-12); Mean Corpuscular Hemoglobin 29.1 pg (27.0-35.0); Mean Corpuscular Volume 88.8 fL (81-100); NEUTROPHILS % (AUTO) 64.3 % (40-74); Platelet Count 434 bil/L (150-400)
[2017-03-19 07:36] LABS: INR 0.92 ratio
[2017-03-19] MEDS: Polyethylene Glycol (PEG) 17 Gm Powder PO SCH (08:30)
[2017-03-19] MEDS: Alum-Mag Hydrox-Simeth 30 mL Suspension PO PRN (09:05)
--- NOTE | 2017-03-19 11:29 | PROG NOTE ---
[address] [address] PROGRESS NOTE PATIENT: ADAMARIS DIXON : 1975 MR#: [id number] ADMIT: 03/16/2017 JOB ID: [id number] DATE: 03/19/2017 SUBJECTIVE: This is a 41-year-old woman who underwent a laparoscopic distal pancreatectomy, and today is postoperative day five. She was initially discharged from the hospital, readmitted with abdominal pain, and has been relatively stable. Today she complains of pain that radiated to the back. Her white blood cell count has increased slightly since yesterday from 14.4 to 14.6. Recall that she had a splenectomy so this may be partially attributable to that. Comprehensive metabolic panel is within normal limits with exception of ALT of 104. Albumin is 3.3. She complains of reflux, has had a bowel movement, and is tolerating a heart healthy diet. Blood sugars have been in the low 100s in the last 24 hours. OBJECTIVE: Vital signs within normal limits. General: Awake, alert, no acute distress. When I first saw her this morning, she was up and out of bed and getting to go for a walk in the halls. Abdomen: Soft, moderately tender throughout, mild distention, no rebound or guarding. JENNIFER drain is in place with serous output. The total output from this drain was 30 mL in a 24-hour period yesterday, and 40 mL between midnight and this morning. ASSESSMENT: A 41-year-old woman postoperative day five from laparoscopic distal pancreatectomy, who is doing well but has a fair amount of abdominal pain and a small peripancreatic fluid collection on CT scan when she was readmitted. PLAN: She will remain in the hospital for observation and pain control for one more day. If her pain improves tomorrow, she may be able to be discharged. If it does not, I will consider repeating her CT scan to rule out a pancreatic leak, which is a fairly frequent complication in this particular operation. She understands all of this and both she and her mother were present and agree.
[2017-03-19 12:33] VITALS: BP 138/85; PULSE 83; RESP 16; O2SAT 97
--- NOTE | 2017-03-19 14:46 | NUR ---
Social Work-readiness for discharge: Data:EMR Reviewed. Pt is on day 3 of hospitalization for Abdominal pain per H&P. Pt is not medically stable anticipate 1-2 more days. Pt resides at home with family in [place]. Pt has been up ambulating the hallways independently. No anticipated discharge needs. SW will continue to follow if needs arise. Assessment:pt who is independent at baseline. Plan:Pt to discharge home when medically stable via POV. No anticipated discharge needs. SW will continue to follow if needs arise. NANCI Luna
[2017-03-19 18:23] VITALS: BP 145/93; PULSE 74; RESP 18; O2SAT 97
--- NOTE | 2017-03-19 20:13 | NUR ---
Pain/JENNIFER Pt has had minimal pain all day. Pt states that it is not really "pain" but rather "discomfort". JENNIFER drain has had very low output in the last 12 hours, only about 20ml.
[2017-03-19 22:30] VITALS: BP 127/69; PULSE 62; RESP 16; O2SAT 95
[2017-03-20] MEDS: Heparin 5,000 Unit/mL Inj SUBQ SCH ×2 (00:55→07:56)
--- NOTE | 2017-03-20 05:58 | NUR ---
Pain/JENNIFER drain/Activity pt reported 2-4/10 abdominal pain. administered scheduled Tylenol and Motrin, and PRN Roxicodone. pt report pain management effective. JENNIFER drained 25 ml serosanguinous output. pt has been ambulating in the hallway x2 with supervision. pt had BM x1. will continue to monitor and provide care.
[2017-03-20 06:14] VITALS: BP 123/83; PULSE 66; RESP 16; O2SAT 96
[2017-03-20] MEDS ORDERED: Pantoprazole 20 mg ER24 Tablet PO SCH (07:30)
[2017-03-20] MEDS: Polyethylene Glycol (PEG) 17 Gm Powder PO SCH (07:56)
[2017-03-20] MEDS ORDERED: Acetaminophen PO (09:37)
[2017-03-20] MEDS ORDERED: OXYC5TAB72 PO (09:37)
[2017-03-20] MEDS ORDERED: POLY17PO6 PO (09:37)
[2017-03-20] MEDS ORDERED: PANT20TA2 PO (09:37)
--- NOTE | 2017-03-20 09:41 | PCM.DISURG ---
Surgical Discharge Instruction Date of Service Mar 20, 2017 Dates of Hospitalization Date of Hospital Admission Mar 16, 2017 at 10:44 Providers Admitting Physician: Lauren Heredia MD Primary Care Physician: Gabby Hawkins MD Attending Physician: Lauren Heredia MD Diet Discharge Diet: Low fat Activity Discharge Activity-General: Be up and about, Activity as pain allows, Activity as energy allows, No lifting >10 pounds for 4-6 weeks Dressing and Incisional Care Dressing Care: Allow Steri Stripes to fall off Hygiene: May shower Follow Up Plan Follow Up Plan Please call to schedule a follow up appointment in the next 1-2 weeks. Follow-up Provider (F9): Lauren Heredia MD Call your provider for: Fever, Chills, Increasing abdominal pain, Nausea, Vomiting, Increasing wound pain, Warmth to touch Gavin Castro MD Mar 20, 2017 09:41
--- NOTE | 2017-03-20 11:11 | NUR ---
Social Work-discharge: Data:EMR reviewed. Pt is on day 4 of hospitalization for abdominal pain per H&P. Pt is medically stable for discharge. Pt has been up independent in the hallways. No discharge needs identified. All updated and agreeable to plan. Assessment:Pt who is independent at baseline. Plan:Pt to discharge home today via POV. No discharge needs identified. All updated and agreeable to plan. NANCI Luna
--- NOTE | 2017-03-20 12:12 | NUR ---
DISCHARGE Patient discharged home with mother who is to drive at 1055. Patient denies pain, shortness of breath, and nausea. Oxycodone x2 given 300min prior per patient request. Medications reviewed, care notes and new Rx's provided. Patient states she understands medications and discharge instructions. Follow up phone numbers and instructions provided in written form as well as reviewed verbally. IV catheter removed intact, JENNIFER drain removed and dressing applied. Extra dressing material given to patient as well as all her personal belongings.
--- NOTE | 2017-03-20 13:05 | PCM.DC.SUR ---
Discharge Summary Date of Service: Mar 20, 2017 Date of Hospital Admission: Mar 16, 2017 at 10:44 Date of Discharge: 03/20/2017 Brief History and Physical: Miss Pearson is a 41-year-old woman who underwent a laparoscopic distal pancreaticosplenectomy on March [address] 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 She recovered well and was discharged home on postoperative day 2 however she returned to the emergency department with severe abdominal pain on March 16. CT scan was performed at that time demonstrating normal postoperative change and a small fluid collection in the resection bed which was deemed not amenable to drainage. She had had no nausea or vomiting and no fevers she was therefore admitted for pain control. Hospital Course: The patient was admitted to the general surgery floor. Over the course of her ensuing hospital stay her pain was well-controlled on oral only narcotic regimen. She was initially started on a full liquid diet was eventually advanced to a heart healthy diet with excellent tolerance. She did continue to complain of intermittent painless abdominal pain radiating through to her back these were much improved compared to admission. She resumed normal spontaneous bowel and bladder function without any issue and was entirely tolerant of ambulation. She had no fevers or chills and remained hemodynamically normal throughout her hospital stay. Of note her drain amylase was 138. Her lipase was 99 at the time of admission and had down trended to 59 periosteal day 2. Her white blood cell count was stable at 14 prior to discharge in the setting of her splenectomy. Her abdominal exam was benign and reassuring. In light of this her drain was discontinued and she was deemed stable for discharge to home. The patient had better exceeded all criteria for a safe discharge to home and was given strict return precautions Disposition: Home. Follow-up Plan: The patient will call the surgical office to schedule a follow-up this week with Dr. Heredia. ([Acetaminophen]) 325 MG TABLET 650 MG PO Q6 Acetaminophen (Acetaminophen) 325 Mg Tablet 325 MG PO Q4H PRN PRN For Fever ( Reported) Estradiol (Estradiol) 2 Mg Tablet 2 MG PO DAILY (Reported) Ibuprofen (Ibuprofen) 400 Mg Tablet 400 MG PO QID PRN PRN For Pain (Reported) Lisinopril / HCTZ 20-25 mg (Lisinopril / HCTZ 20-25 mg) 1 Each Tablet 1 EACH PO DAILY (Reported) Ondansetron ODT (Ondansetron ODT) 4 Mg Tab.rapdis 0.4 MG ORAL q6hrs PRN PRN For Nausea (Reported) Pantoprazole DR (Pantoprazole DR) 20 Mg Tablet.dr 20 MG PO DAILYAC Polyethylene Glycol 3350 (Miralax) 17 Gm Powd.pack 17 GM PO DAILY Take to help pass smooth and soft bowel movements while using narcotic meds. oxyCODONE (oxyCODONE) 5 Mg Tablet 5 MG PO Q6 hours Wean as tolerated Gavin Castro MD Mar 20, 2017 13:05
== END 2017-03-20 10:55 | disposition home or self-care (01) | DRG 948 ==
LOC: SED 05:45 → MOC 10:44 → OBSVTOIN 10:44
PROVIDERS: ADMIT Student in an Organized Health Care Education/Training Program; ATTEND Student in an Organized Health Care Education/Training Program
DX: G89.18 Other acute postprocedural pain (principal); I10 Essential (primary) hypertension; D72.829 Elevated white blood cell count, unspecified; Z90.81 Acquired absence of spleen; Z90.49 Acquired absence of other specified parts of digestive tract; Z98.890 Other specified postprocedural states; Z87.891 Personal history of nicotine dependence